=== PATIENT | female | born 2000 | race Caucasian/White ===

== ENCOUNTER 2019-02-15 16:41 | Emergency (ER) | payer OTHER ==
[~2019-02-15] VITALS: Ht 157.5 cm; Wt 70.7 kg
[~2019-02-15 16:41] MED LIST: POLY17PO6 PO
[2019-02-15 17:59] VITALS: Ht 157.5 cm; Wt 70.7 kg
[2019-02-15 20:49] VITALS: BP 110/70; PULSE 59; RESP 18
== END 2019-02-15 20:50 | disposition home or self-care (01) ==
LOC: FTE 16:41
DX: R10.30 Lower abdominal pain, unspecified (principal)
CPT/HCPCS: 74018; 81003; 81025; Z7502